=== PATIENT | male | born 1975 | race Caucasian/White ===

== ENCOUNTER 2019-10-17 13:39 | Emergency (ER) | payer OTHER ==
--- NOTE | 2019-10-17 14:10 | ER Document Report ---
ED Medical Screen (RME) - General Chief Complaint: Post Surgical Pain Stated Complaint: POST SURGICAL PAIN Time Seen by Provider: 10/17/19 13:59 Mode of Arrival: Ambulatory Information source: Patient Notes: Patient is a 44-year-old male presented to the emergency department approximately 9 days post craniotomy with complaints of headache, the sensation of water moving around his head and also a red rash to his torso and arms. Patient is unsure if he is may be probably allergic reaction to something. He states he called his surgical group who referred him to the emergency department. He denies any dizziness, confusion and he has neurologically intact. I have greeted and performed a rapid initial assessment of this patient. A comprehensive ED assessment and evaluation of the patient, analysis of test results and completion of the medical decision making process will be conducted by additional ED providers. I have specifically instructed the patient or family members with the patient to immediately return to any nursing staff should anything change in the patient's condition or with their chief complaint. This medical record was dictated with voice recognizing software. There may be grammatical, syntax errors that are unintended. - Related Data Allergies/Adverse Reactions: No Known Allergies Allergy (Verified 10/17/19 14:01) Physical Exam - Vital signs Vitals: Temp Pulse Resp BP Pulse Ox 97.8 F 75 18 139/77 H 100 10/17/19 13:53 10/17/19 13:53 10/17/19 13:53 10/17/19 13:53 10/17/19 13:53 Course - Vital Signs Vital signs: Temp Pulse Resp BP Pulse Ox 97.8 F 75 18 139/77 H 100 10/17/19 13:53 10/17/19 13:53 10/17/19 13:53 10/17/19 13:53 10/17/19 13:53
--- NOTE | 2019-10-17 15:15 | RADIOLOGY REPORT (SQ) ---
EXAM DESCRIPTION: CT HEAD WITHOUT COMPLETED DATE/TIME: 10/17/2019 2:44 pm REASON FOR STUDY: headache post craniotomy COMPARISON: None. TECHNIQUE: Axial images acquired through the brain without intravenous contrast. Images reviewed wi th bone, brain and subdural windows. Additional sagittal and coronal reconstructions were generated. Images stored on PACS. All CT scanners at this facility use dose modulation, iterative reconstruction, and/or weight based d osing when appropriate to reduce radiation dose to as low as reasonably achievable (ALARA). [facility]: Dose Right [facility]: CareDose [facility]: Dose Right [facility]: Teradose 4D [facility]: [employer] RADIATION DOSE: CT Rad equipment meets quality standard of care and radiation dose reduction techniq ues were employed. CTDIvol: 53.2 mGy. DLP: 937 mGy-cm. mGy. LIMITATIONS: No preoperative imaging for comparison FINDINGS: Findings discussed with Dr. Monroy in the emergency room. Craniotomy 9 days ago at [facility], no other history. Left frontal craniotomy is present with a small amount of air in the left frontal extra-axial spaces deep to the bone flap on axial images 15-24. Small amount of air deep to the scalp flap and superfic ial skin sutures. The anterior left frontal lobe is abnormal, with thickened gyri over the left frontal region with inc reased attenuation. There is vasogenic edema in the left frontal lobe respecting the amaya-white junc tion. Findings are worrisome for left frontal primary brain tumor. Mild local mass effect with mini mal 5 mm [id number] subfalcine shift of the frontal horns. No preoperative imaging for comparison . No acute large territory ischemic change, or acute intracranial hemorrhage. Posterior fossa structur es are unremarkable. Chronic inflammatory change left maxillary sinus with mucous or serous retention cyst. Old right mas toidectomy. IMPRESSION: Post left frontal craniotomy with air intracranially deep to the skull flap. There is a lso air deep to the scalp sutures Abnormal left frontal lobe with vasogenic edema, frontal brain cortical thickening with increased att enuation worrisome for primary glioma. Mild local mass effect with very mild left to right subfalcin e shift anteriorly. Findings discussed with Dr. Monroy in the emergency room EVIDENCE OF ACUTE STROKE: NO. COMMENT: Quality ID # [id number]: Final reports with documentation of one or more dose reduction techniques (e.g., Automated exposure control, adjustment of the mA and/or kV according to patient size, use of iterative reconstruction technique) TECHNICAL DOCUMENTATION: JOB ID: [id number] [email or web address]@- All Rights Reserved Reading location - IP/workstation name: [id number]
[2019-10-17] MEDS ORDERED: PREDNISONE 20 MG TABLET PO ONE (15:30)
[2019-10-17] MEDS ORDERED: DIPHENHYDRAMINE HCL 25 MG CAPSULE PO ONE (15:30)
--- NOTE | 2019-10-17 15:46 | ER Document Report ---
ED General - General Chief Complaint: Post Surgical Pain Stated Complaint: POST SURGICAL PAIN Time Seen by Provider: 10/17/19 13:59 Mode of Arrival: Ambulatory TRAVEL OUTSIDE OF THE [place] IN LAST 30 DAYS: No - Related Data Allergies/Adverse Reactions: No Known Allergies Allergy (Verified 10/17/19 14:01) Home Medications: adderall. dicyclomine. fiorcet. pepcid. gabapentin. irbesartan. dexamethasone. asa 81. hctz 25. colace 100 Past Medical History - General Information source: Patient - Social History Smoking Status: Never Smoker Chew tobacco use (# tins/day): No Frequency of alcohol use: None Drug Abuse: None Family History: Reviewed & Not Pertinent Patient has suicidal ideation: No Patient has homicidal ideation: No - Past Medical History Cardiac Medical History: Reports: Hx Hypercholesterolemia, Hx Hypertension Past Surgical History: Reports: Hx Orthopedic Surgery - right shoulder, right knee Physical Exam - Vital signs Vitals: Temp Pulse Resp BP Pulse Ox 97.8 F 75 18 139/77 H 100 10/17/19 13:53 10/17/19 13:53 10/17/19 13:53 10/17/19 13:53 10/17/19 13:53 - Notes Notes: Patient presents emergency department planing of rash is been going on for the past 4 days. When he was in the hospital on his hands but is spread to his arms chest and back. There is no new clothes or detergents. He was on multiple medications while in the hospital. He denies any chest pain or shortness of breath associated with this no nausea vomiting abdominal pain facial swelling or difficulty swallowing. Patient is also complaining of some swelling to left caodaism area of the incision site. His mom indicates that he had a little bit of swelling when he left the hospital 4 days ago it seems of gotten a little bit worse. He has very minimal headache and the headache is actually decreased significantly since being discharged. No drainage from the wound and no fevers. His vision is normal. He has some mild numbness in his hands that has had since the surgery which is actually improving has no weakness at all. Appetite has been good Past medical history sniffing for recently diagnosed glioma with surgery Social history does not smoke or drink at all Review of systems pertinent positives and negatives in HPI otherwise all the systems were reviewed and acutely negative PHYSICIAN EXAM -vital signs are noted triage note and note from triage reviewed GENERAL: Well-appearing, well-nourished and in __no acute distress____ HEAD: normocephalic. Large incision that goes across the top of the head near the frontal area sutures are placed wound is clean and dry. There is no drainage or redness. There is no tenderness in the area. Is a small soft boggy area in the left frontal area just below the incision site is nontender no redness. EYES: Pupils equal round and reactive to light, extraocular movements intact, sclera anicteric, conjunctiva are normal. ENT: nares patent, oropharynx clear without exudates. Moist mucous membranes. There is no swelling of the face tongue or lips. He has a patent airway. The rest of the face is nonswollen NECK: supple without lymphadenopathy LUNGS: Breath sounds clear to auscultation bilaterally and equal. No wheezes rales or rhonchi. HEART: Regular rate and rhythm without murmurs ABDOMEN: Soft, nontender, normoactive bowel sounds. EXTREMITIES: No deformity, no edema. NEUROLOGICAL: Alert and oriented x4. Cranial nerves he has symmetrical smile facies and shoulder shrug. His motor strength is 5/5 bilaterally in the upper and lower extremities. Toes downgoing. Sensation is intact to light touch is a negative Romberg and normal gait PSYCH: Normal mood, normal affect. SKIN: Warm, Dry, normal turgor, scattered areas of rash on arms back chest and abdomen mostly macular macular but there are a few papular areas also. He has no wheals he has several small areas of ecchymosis on his arms secondary to previous IVs BACK-nontender in the midline Differential diagnosis includes allergic reaction contact dermatitis hematoma Course - Re-evaluation Re-evalutation: 10/17/19 16:54 ED patient is remained stable was given Benadryl Medical decision making patient presents with a generalized rash appears to be consistent with allergic reaction. Drug is unclear at this time he looks well can be discharged home. He will be given a prescription for cimetidine Decadron and advised to take Benadryl. I did discuss CT findings with the on-call neurosurgeon. He recommends continuing the Decadron following up next week for his scheduled appointment I discussed results of laboratory findings and diagnostic test with patient/family. The treatment plan was explained and I reviewed the discharge instructions with them. Questions were answered. The patient/family verbalizes understanding Patient 1 dictation was done using voice recognition software. There may be some grammatical errors which are unintentional - Vital Signs Vital signs: Temp Pulse Resp BP Pulse Ox 97.8 F 75 18 139/77 H 100 10/17/19 13:53 10/17/19 13:53 10/17/19 13:53 10/17/19 13:53 10/17/19 13:53 - Diagnostic Test Radiology reviewed: Reports reviewed Discharge - Discharge Clinical Impression: Allergic reaction Qualifiers: Encounter type: initial encounter Qualified Code(s): T78.40XA - Allergy, unspecified, initial encounter Postoperative hematoma Qualifiers: Surgical complication system/body Area: subcutaneous tissue Disposition: HOME, SELF-CARE Instructions: Acute Allergic Reaction ([facility]) Additional Instructions: Please review the discharge instructions, they will tell you about your disease/injury and what you need to return to the ED for Return to the ED if you feel worse or can follow-up with your family doctor Take 2 Benadryl 4 times a day for the next 3 days then as needed for itching or rash this may cause drowsiness especially if you take any of the Fioricet Follow-up with your family doctor in 2 to 3 days if the rash is not better and keep your appointment with neurosurgery next week Return if you develop increasing headaches abnormal vision nausea vomiting or weakness in the arms or legs Prescriptions: Cimetidine 300 mg PO ASDIR PRN #15 tablet PRN Reason: Dexamethasone [Decadron 4 Mg Tablet] 4 mg PO ASDIR PRN #15 tablet PRN Reason:
[2019-10-17 17:31] VITALS: BP 136/76
== END 2019-10-17 17:31 | disposition home or self-care (01) ==
LOC: ER 13:39
DX: L23.9 Allergic contact dermatitis, unspecified cause (principal); X58.XXXA Exposure to other specified factors, initial encounter; G89.18 Other acute postprocedural pain; E78.00 Pure hypercholesterolemia, unspecified; I10 Essential (primary) hypertension
CPT/HCPCS: 99284; 70450; J7512